=== PATIENT | female | born 1945 | race Caucasian/White ===

== ENCOUNTER 2016-12-22 16:35 | Observation (INO) | payer OTHER ==
--- NOTE | 2016-12-22 17:50 | DR.H&P ---
H&P - History & Physical for Day of: H&P Date: 12/22/16 - Chief Complaint Chief Complaint: Severe Anxiety - Allergies Allergies/Adverse Reactions: Allergies Allergy/AdvReac Type Severity Reaction Status Date / Time aspirin Allergy Verified 12/22/16 17:22 ibuprofen Allergy Verified 12/22/16 17:22 lisinopril Allergy Verified 12/22/16 17:22 Penicillins Allergy Verified 12/22/16 17:22 Sulfa (Sulfonamide Allergy Verified 12/22/16 17:22 Antibiotics) [SULFA] gabapentin [From Neurontin] AdvReac Verified 12/22/16 17:22 - History of Present Illness History of Present Illness: This is a 71 year old w/fe patient who presents to [facility] for re-evaluation of anxiety with her daughter. Patient is seeking counseling. She voices concerns about Paxil, states that it makes her have anxiety and hot flashes. Patient states that she is knows she is depressed since the passing of her . The daughter is concerned because her mother has never been like this. Patient says she feels as though something physical is going on. She is depressed, unsure about herself, and afraid. States that she can't go on like this. The patient states that on 3 different occasions yesterday, she got in her car and sat with it running due to fear of being in the house by herself. States she is afraid to be alone. States that in the car she feels she can leave and "just go" somewhere. States she will get up at night and get in [place] Patient does state that she has never been by herself. Patient is excessive trembling and shaking with speech affected. Does states that she does not want to intentionally harm herself. Did state she removed the bullets from her gun and put them in a separate location. Did contact [facility] and they have no beds available. Unable to reach [facility]. - Past Medical History Past Medical History: Anxiety, Depression, GERD, Hypertension Additional Medical History: Intervertebral disc degeneration, lumbar, Hiatal Hernia, Hypokalemia - Past Surgical History Surgical History: Cholecystectomy, Hysterectomy - Family History Family History Comment: Lung disease - Social History Does patient currently use any type of tobacco product: No Have you used tobacco products in the last 12 months: No Type of Tobacco Use: None Does any household member use tobacco: No Alcohol Use: None Drug Use: None - Review of Systems Constitutional: See HPI Eyes: No Symptoms Reported ENT: No Symptoms Reported Respiratory: No Symptoms Reported Cardiovascular: No Symptoms Reported Gastrointestinal: No Symptoms Reported Genitourinary: No Symptoms Reported Musculoskeletal: Back Pain Skin: No Symptoms Reported Neurological: See HPI Oriented: Normal Eyes: Normal Ear: Normal Nose: Normal Throat: Normal Respiratory: Clear Throughout Cardiovascular: Normal : Normal Auscultation: Bowel Sounds: Normal Palpation: Normal Tenderness: Normal Skin: Normal Musculoskeletal: Back:Lumbar, Tender Psychiatric: Anxiety, Depression, Agitation Mood Description: Anxious Affect: Anxious Speech Pattern: Clear - Assessment/Plan (1) Severe anxiety with panic Status: Acute Plan: Labs, Case mgmt consult for IP Psych (2) Depression Qualifiers: Depression Type: major depressive disorder Major depression recurrence: M Active/Remission status: currently active Major depression episode severity : severe Psychotic features: P Trimester: T Status: Acute Plan: Labs, IP Psych placement.
[2016-12-22 17:55] LABS: BASOPHILS # (AUTO) 0.1 X10^3/uL (0.0-0.1); BASOPHILS % (AUTO) 0.9 % (0.2-1.0); EOSINOPHILS # (AUTO) 0.2 x10^3/uL (0.0-0.2); EOSINOPHILS % (AUTO) 2.5 % (0.9-2.9); HEMATOCRIT 40.6 % (36.0-47.0); HEMOGLOBIN 13.9 g/dL (12.0-16.0); LYMPHOCYTES # (AUTO) 1.8 X10^3/uL (1.3-2.9); LYMPHOCYTES % (AUTO) 26.9 % (21.0-51.0); MEAN CORPUSCULAR HEMOGLOBIN 29.8 pg (27.0-34.0); MEAN CORPUSCULAR HGB CONC 34.2 g/dL (33.0-35.0); MEAN PLATELET VOLUME 8.3 fL (7.4-11.0); MONOCYTES # (AUTO) 0.7 x10^3/uL (0.3-0.8); MONOCYTES % (AUTO) 10.2 % (0.0-13.0); NEUTROPHILS % (AUTO) 59.5 % (42.0-75.0); PLATELET COUNT 231 X10^3/uL (150.0-450.0); RED BLOOD COUNT 4.67 X10^6/uL (3.5-5.4); RED CELL DISTRIBUTION WIDTH 13.1 % (11.6-16.5); WHITE BLOOD COUNT 6.7 X10^3/uL (3.6-10.0)
[2016-12-22 18:13] VITALS: BMI 25.4
[2016-12-22 18:17] LABS: ALANINE AMINOTRANSFERASE 21 Units/L (12-78); ALBUMIN 3.3 g/dL (3.4-5.0); ALKALINE PHOSPHATASE 77 Units/L (46-116); ASPARTATE AMINO TRANSFERASE 16 Units/L (15-37); BLOOD UREA NITROGEN 9 mg/dL (7-18); CALCIUM 8.4 mg/dL (8.5-10.1); CHLORIDE 103 mmol/L (98-107); CKMB % 3.3 % (<4); CREATINE KINASE 30 Units/L (26-192); CREATINE KINASE MB < 1.0 ng/mL (0-4.0); CREATININE 0.82 mg/dL (0.55-1.02); FREE T4 (FREE THYROXINE) 1.37 ng/dL (0.76-1.46); GLUCOSE 95 mg/dL (65-99); SODIUM 141 mmol/L (136-145); TOTAL PROTEIN 7.4 g/dL (6.4-8.2); TROPONIN I < 0.02 ng/mL (0-1.5); TSH (3RD GENERATION) 2.847 uIU/mL (0.358-3.74); eGFR BLACK RACES > 60 (>60); eGFR NON BLACK RACES > 60 (>60)
[2016-12-22] MEDS: NS 1000 ML 1,000 ML IV SCH (18:26)
[2016-12-22 21:31] LABS: BILIRUBIN,URINE NEGATIVE (NEGATIVE); BLOOD/HEMOGLOBIN,URINE 1+ (NEGATIVE); GLUCOSE, URINE NEGATIVE (NEGATIVE); KETONES,URINE NEGATIVE (NEGATIVE); LEUKOCYTE ESTERASE ,URINE NEGATIVE (NEGATIVE); NITRITES,URINE NEGATIVE (NEGATIVE); PROTEIN,URINE NEGATIVE (NEGATIVE); UROBILINOGEN,URINE NORMAL (NORMAL)
[2016-12-22 21:40] LABS: AMORPHOUS SEDIMENT,UR TRACE /HPF (NEGATIVE); APPEARANCE,URINE CLEAR (CLEAR); BACTERIA,URINE TRACE /HPF (NEGATIVE); COLOR,URINE YELLOW (YELLOW); RBC,URINE 0-3 /HPF (NEGATIVE); SQUAMOUS EPITHELIAL CELL,UR RARE /HPF (NEGATIVE)
[2016-12-22 23:59] LABS: CKMB % 4.2 % (<4); CREATINE KINASE 24 Units/L (26-192); CREATINE KINASE MB < 1.0 ng/mL (0-4.0); TROPONIN I < 0.02 ng/mL (0-1.5)
[2016-12-23 06:16] LABS: CREATINE KINASE 20 Units/L (26-192); CREATINE KINASE MB < 1.0 ng/mL (0-4.0); TROPONIN I < 0.02 ng/mL (0-1.5)
[2016-12-23] MEDS ORDERED: APRESOLINE TAB 10 MG PO PRN (08:40)
[2016-12-23] MEDS: KLONOPIN TAB 1 MG PO PRN ×2 (09:15→20:40)
[2016-12-23] MEDS ORDERED: TYLENOL 325 MG TAB PO PRN (09:24)
[2016-12-23] MEDS: NS 1000 ML 1,000 ML IV SCH ×3 (09:44→23:40)
[2016-12-23] MEDS: PROzac PO SCH (10:15)
--- NOTE | 2016-12-23 13:25 | PCM.PROG ---
Progress Note - Progress Note for Day of Date: 12/23/16 - Subjective Subjective: 71 WF ADMITTED ON 12/22/2016 FOR UNCONTROLLED ANXIETY. PT HAS AGREED TO SEEK INPT TREATMENT. PT HAS TRIED MULTIPLE MEDICATIONS ON OUPT BASIS WITH ADVERSE SIDE EFFECTS, THEREFORE INCREASE ANXIETY. PT HAS HX HTN AND HEART MURMUR. PLAN TO CLEAR MEDICALLY, CASE MANAGEMENT CONSULT FOR INPT TREATMENT CENTER PLACEMENT. - Past Medical Family Social History Past Med/Fam/Surg Hx: No changes since H&P Allergies: Allergies aspirin Allergy (Verified 12/22/16 17:22) ibuprofen Allergy (Verified 12/22/16 17:22) lisinopril Allergy (Verified 12/22/16 17:22) Penicillins Allergy (Verified 12/22/16 17:22) Sulfa (Sulfonamide Antibiotics) [SULFA] Allergy (Verified 12/22/16 17:22) gabapentin [From Neurontin] Adverse Reaction (Verified 12/22/16 17:22) - Review of Systems ROS: No change since H&P - Vital Signs and I&O's Vital Signs: Temperature 97.9 F Pulse Rate [Right Brachial] 71 Respiratory Rate 20 Blood Pressure [Right Arm] 122/63 O2 Sat by Pulse Oximetry 93 Intake and Output: Intake & Output 12/21/16 12/22/16 12/23/16 12/24/16 11:59 11:59 11:59 11:59 Intake Total 900 Output Total 525 Balance 375 - Physical Exam Oriented: Normal Eyes: Normal Ear: Normal Nose: Normal Throat: Normal Respiratory: Normal Cardiovascular: Murmur : Normal Auscultation: Bowel Sounds: Normal Tenderness: Normal Skin: Normal Musculoskeletal: Back:Lumbar, Tender Psychiatric: Anxiety, Depression, Agitation Mood Description: Anxious Affect: Anxious Speech Pattern: Clear - Laboratory and Diagnostics Result Diagrams: 12/22/16 17:45 12/22/16 17:45 Labs: Laboratory WBC 6.7 X10^3/uL (3.6-10.0) 12/22/16 17:45 RBC 4.67 X10^6/uL (3.5-5.4) 12/22/16 17:45 Hgb 13.9 g/dL (12.0-16.0) 12/22/16 17:45 Hct 40.6 % (36.0-47.0) 12/22/16 17:45 MCV 87.0 fL (80.0-100.0) 12/22/16 17:45 MCH 29.8 pg (27.0-34.0) 12/22/16 17:45 MCHC 34.2 g/dL (33.0-35.0) 12/22/16 17:45 RDW 13.1 % (11.6-16.5) 12/22/16 17:45 Plt Count 231 X10^3/uL (150.0-450.0) 12/22/16 17:45 MPV 8.3 fL (7.4-11.0) 12/22/16 17:45 Neut % 59.5 % (42.0-75.0) 12/22/16 17:45 Lymph % 26.9 % (21.0-51.0) 12/22/16 17:45 [place] % 10.2 % (0.0-13.0) 12/22/16 17:45 Eos % 2.5 % (0.9-2.9) 12/22/16 17:45 Baso % 0.9 % (0.2-1.0) 12/22/16 17:45 Neut # 4.0 x10^3/uL (2.2-4.8) 12/22/16 17:45 Lymph # 1.8 X10^3/uL (1.3-2.9) 12/22/16 17:45 [place] # 0.7 x10^3/uL (0.3-0.8) 12/22/16 17:45 Eos # 0.2 x10^3/uL (0.0-0.2) 12/22/16 17:45 Baso # 0.1 X10^3/uL (0.0-0.1) 12/22/16 17:45 Absolute Nucleated RBC 0.0 /100WBC 12/22/16 17:45 Sodium 141 mmol/L (136-145) 12/22/16 17:45 Corrected Sodium TNP 12/22/16 17:45 Potassium 3.6 mmol/L (3.5-5.1) 12/22/16 17:45 Chloride 103 mmol/L (98-107) 12/22/16 17:45 Carbon Dioxide 30.0 mmol/L (21-32) 12/22/16 17:45 BUN 9 mg/dL (7-18) 12/22/16 17:45 Creatinine 0.82 mg/dL (0.55-1.02) 12/22/16 17:45 Est GFR (MDRD) Af Amer > 60 (>60) 12/22/16 17:45 Est GFR (MDRD) Non-Af > 60 (>60) 12/22/16 17:45 Glucose 95 mg/dL (65-99) 12/22/16 17:45 Calcium 8.4 mg/dL (8.5-10.1) L 12/22/16 17:45 Corrected Calcium 9.0 mg/dL (8.5-10.1) 12/22/16 17:45 Magnesium 2.0 mg/dL (1.7-2.9) 12/22/16 17:45 Total Bilirubin 0.30 mg/dL (0.2-1.0) 12/22/16 17:45 AST 16 Units/L (15-37) 12/22/16 17:45 ALT 21 Units/L (12-78) 12/22/16 17:45 Alkaline Phosphatase 77 Units/L (46-116) 12/22/16 17:45 Creatine Kinase 20 Units/L (26-192) L 12/23/16 05:30 CK-MB (CK-2) < 1.0 ng/mL (0-4.0) 12/23/16 05:30 CK/CKMB % Calc 5.0 % (<4) 12/23/16 05:30 Troponin I < 0.02 ng/mL (0-1.5) 12/23/16 05:30 Total Protein 7.4 g/dL (6.4-8.2) 12/22/16 17:45 Albumin 3.3 g/dL (3.4-5.0) L 12/22/16 17:45 Globulin 4.1 g/dL (2.5-4.5) 12/22/16 17:45 Albumin/Globulin Ratio 0.8 Ratio (1.1-2.1) L 12/22/16 17:45 Free T4 1.37 ng/dL (0.76-1.46) 12/22/16 17:45 TSH 3rd Generation 2.847 uIU/mL (0.358-3.74) 12/22/16 17:45 Specimen Type Clean catch urine 12/22/16 21:15 Urine Color Yellow (YELLOW) 12/22/16 21:15 Urine Appearance Clear (CLEAR) 12/22/16 21:15 Urine pH 6.0 (5.0 - 8.0) 12/22/16 21:15 Ur Specific [place] 1.015 (1.000-1.030) 12/22/16 21:15 Urine Protein Negative (NEGATIVE) 12/22/16 21:15 Urine Glucose (UA) Negative (NEGATIVE) 12/22/16 21:15 Urine Ketones Negative (NEGATIVE) 12/22/16 21:15 Urine Occult Blood 1+ (NEGATIVE) 12/22/16 21:15 Urine Nitrite Negative (NEGATIVE) 12/22/16 21:15 Urine Bilirubin Negative (NEGATIVE) 12/22/16 21:15 Urine Urobilinogen Normal (NORMAL) 12/22/16 21:15 Ur Leukocyte Esterase Negative (NEGATIVE) 12/22/16 21:15 Urine RBC 0-3 /HPF (NEGATIVE) 12/22/16 21:15 Urine WBC 0-1 /HPF (NEGATIVE) 12/22/16 21:15 Ur Squamous Epith Cells Rare /HPF (NEGATIVE) 12/22/16 21:15 Amorphous Sediment Trace /HPF (NEGATIVE) 12/22/16 21:15 Urine Bacteria Trace /HPF (NEGATIVE) 12/22/16 21:15 Ur Culture Indicated? No/not indicated 12/22/16 21:15 - Plan (1) Severe anxiety with panic Status: Acute Plan: Labs, MEDICAL CLEARANCE, PRN CLONAZEPAM. Case mgmt consult for IP Psych (2) Hypertension Status: Acute Qualifiers: Hypertension type: H (3) Murmur, cardiac Status: Acute Plan: ECHO TODAY, HX OF VALVE INSUFF
[2016-12-23 13:47] LABS: FREE T4 (FREE THYROXINE) 1.39 ng/dL (0.76-1.46); TSH (3RD GENERATION) 1.621 uIU/mL (0.358-3.74)
[2016-12-23] MEDS ORDERED: ZANTAC PO SCH (21:00)
[2016-12-24 05:51] LABS: ALANINE AMINOTRANSFERASE 17 Units/L (12-78); ALBUMIN 2.7 g/dL (3.4-5.0); ALKALINE PHOSPHATASE 67 Units/L (46-116); ASPARTATE AMINO TRANSFERASE 13 Units/L (15-37); BLOOD UREA NITROGEN 16 mg/dL (7-18); CALCIUM 8.2 mg/dL (8.5-10.1); CARBON DIOXIDE 31.9 mmol/L (21-32); CHLORIDE 107 mmol/L (98-107); COR CA(FOR HYPOALB) 9.2 mg/dL (8.5-10.1); GLUCOSE 81 mg/dL (65-99); SODIUM 142 mmol/L (136-145); TOTAL PROTEIN 6.2 g/dL (6.4-8.2); eGFR BLACK RACES > 60 (>60); eGFR NON BLACK RACES > 60 (>60)
[2016-12-24 06:18] LABS: BASOPHILS % (AUTO) 0.7 % (0.2-1.0); EOSINOPHILS # (AUTO) 0.3 x10^3/uL (0.0-0.2); EOSINOPHILS % (AUTO) 4.3 % (0.9-2.9); HEMATOCRIT 35.7 % (36.0-47.0); HEMOGLOBIN 12.2 g/dL (12.0-16.0); LYMPHOCYTES # (AUTO) 2.5 X10^3/uL (1.3-2.9); LYMPHOCYTES % (AUTO) 39.6 % (21.0-51.0); MEAN CORPUSCULAR HEMOGLOBIN 29.8 pg (27.0-34.0); MEAN CORPUSCULAR HGB CONC 34.3 g/dL (33.0-35.0); MEAN CORPUSCULAR VOLUME 86.9 fL (80.0-100.0); MEAN PLATELET VOLUME 8.7 fL (7.4-11.0); MONOCYTES # (AUTO) 0.6 x10^3/uL (0.3-0.8); MONOCYTES % (AUTO) 8.9 % (0.0-13.0); NEUTROPHILS # (AUTO) 2.9 x10^3/uL (2.2-4.8); NEUTROPHILS % (AUTO) 46.5 % (42.0-75.0); PLATELET COUNT 212 X10^3/uL (150.0-450.0); RED CELL DISTRIBUTION WIDTH 13.5 % (11.6-16.5); WHITE BLOOD COUNT 6.3 X10^3/uL (3.6-10.0)
[2016-12-24] MEDS: NS 1000 ML 1,000 ML IV SCH (09:52)
[2016-12-24] MEDS: PROzac PO SCH ×2 (09:52→09:53)
[2016-12-24 12:32] VITALS: BP 134/63
== END 2016-12-24 14:20 ==
LOC: MED/SURG 16:35
PROVIDERS: ADMIT Internal Medicine; ATTEND Internal Medicine
DX: F41.8 Other specified anxiety disorders (principal); F41.0 Panic disorder [episodic paroxysmal anxiety]; F32.89 Other specified depressive episodes; K21.9 Gastro-esophageal reflux disease without esophagitis; I10 Essential (primary) hypertension; R01.1 Cardiac murmur, unspecified; Z79.899 Other long term (current) drug therapy
CPT/HCPCS: 36415; 80053; 80307; 81001; 82550; 82553; 83735; 84439; 84443; 84484; 85025; 93005; 93010; 93306; A4216; A4222; G0378; G0434